=== PATIENT | female | born 1950 | race Caucasian/White ===

== ENCOUNTER 2025-01-28 10:55 | Inpatient (IN) | payer MEDICARE ==
[~2025-01-28] VITALS: Ht 157.5 cm; Wt 59.0 kg
[2025-01-28 11:10] VITALS: BP 132/109
[2025-01-28 11:56] LABS: BASO # 0.0 10*3/uL (0.0-0.1); BASO % 0.6 % (0.0-1.0); EOS # 0.0 10*3/uL (0.0-0.4); EOS % 0.8 % (1.0-4.0); MEAN CELL VOLUME 94.4 fl (81.0-99.0); MEAN CORPUSCULAR HGB 30.4 pg (27.0-31.0); MEAN PLATELET VOLUME 9.8 fl (9.6-12.3); MONO # 0.4 10*3/uL (0.1-1.0); MONO % 8.4 % (3.0-9.0); NEUT # 3.5 10*3/uL (2.3-7.9); NEUT % 66.6 % (47.0-73.0); NUCLEATED RED BLOOD CELL 0.0 % (0.0-0.0); NUCLEATED RED BLOOD CELL 0.0 10*3/uL (0.0-0.0); PLATELET COUNT AUTOMATED 233 10*3/uL (130-400); RED CELL DISTRI WIDTH 13.7 % (0-14.5)
[2025-01-28 12:13] LABS: BILIRUBIN Negative (Negative); BLOOD Negative (Negative); CLARITY Clear (Clear); COLOR Yellow (Yellow); KETONE Negative (Negative); LEUKO ESTERASE Trace (Negative); NITRITE Negative (Negative); PH 6.0 (4.5-8.0); SPECIFIC GRAVITY 1.015 (1.001-1.030); UROBILINOGEN 0.2 E.U./dl (0.0-1.0)
[2025-01-28 12:19] LABS: BUN 10.0 mg/dl (9-23); SGPT/ALT 9.0 U/L (5-49)
[2025-01-28 12:24] LABS: URINE AMPHETAMINES Negative (1000ng/ml); URINE BARBITURATES Negative (200ng/ml); URINE BENZODIAZEPINES Negative (200ng/ml); URINE CANNABINOIDS (THC) Negative (50ng/ml); URINE COCAINE Negative (300ng/ml); URINE METHADONE Negative (300ng/ml); URINE OPIATES Negative (300ng/ml); URINE PHENCYCLIDINE Negative (25ng/ml)
[2025-01-28 12:32] LABS: BACTERIA 1+; MUCOUS 1+
[2025-01-28] MEDS ORDERED: LORazepam 2 MG/ML VIAL IM PRN (15:30)
[2025-01-28] MEDS ORDERED: LORazepam 1 MG TAB PO PRN (15:30)
[2025-01-28] MEDS ORDERED: Water, Sterile 10 ML VIAL IM PRN (15:55)
[2025-01-28] MEDS ORDERED: LORazepam 2 MG/ML VIAL ONE (15:59)
[2025-01-28] MEDS ORDERED: hydrOXYzine hydrochloride 50 MG/ML VIAL IM PRN (16:00)
[2025-01-28] MEDS ORDERED: ACETAMINOPHEN 325 MG TAB PO PRN (16:10)
[2025-01-28] MEDS ORDERED: Menthol/Zinc Oxide 4 GM THIN T PRN (16:15)
[2025-01-28] MEDS ORDERED: RIVASTIGMINE TAR3 M1 PO (16:22)
[2025-01-28] MEDS ORDERED: ROSUVASTATIN CA10 MG PO (16:22)
[2025-01-28] MEDS ORDERED: ZOLOFT100 MG PO (16:24)
[2025-01-28] MEDS ORDERED: TYLENOL EXTRA500 MG PO (16:25)
[2025-01-28] MEDS ORDERED: VITAMIN D350 MCG PO (16:26)
[2025-01-28] MEDS ORDERED: ALLEGRA HIVES180 MG PO (16:28)
[2025-01-28] MEDS ORDERED: AZELASTINE137 MCG/0. INH (16:30)
[2025-01-28] MEDS ORDERED: ELIQUIS2.5 M1 PO (16:33)
[2025-01-28] MEDS ORDERED: ATIVAN1 MG PO ×2 (16:35→16:36)
[2025-01-28] MEDS ORDERED: NAMENDA-5 PO (16:37)
[2025-01-28] MEDS ORDERED: SINGULAIR10 M1 PO (16:38)
[2025-01-28] MEDS ORDERED: Memantine Hydrochloride 5 MG TAB PO SCH (21:00)
[2025-01-28] MEDS ORDERED: LORazepam 1 MG TAB PO SCH (21:00)
[2025-01-28] MEDS ORDERED: APIXABAN 2.5 MG TABLET PO SCH (21:00)
[2025-01-28 21:10] VITALS: BP 126/81
[2025-01-29 06:48] LABS: LDL CHOLESTEROL 89.0 mg/dL (9-159)
[2025-01-29 07:13] LABS: VITAMIN D, 25-HYDROXY 42.3 ng/mL (30-100)
[2025-01-29 08:15] VITALS: BP 138/82
[2025-01-29] MEDS ORDERED: CYANOCOBALAMIN 1,000 MCG/ML VIAL IM SCH (10:00)
[2025-01-29] MEDS ORDERED: risperiDONE 0.5 MG TAB PO SCH (10:00)
[2025-01-29] MEDS ORDERED: LORazepam 0.5 MG TAB PO SCH (13:00)
[2025-01-29 20:00] VITALS: BP 110/53
[2025-01-29] MEDS ORDERED: risperiDONE 1 MG TAB PO SCH (21:00)
[2025-01-30 07:37] VITALS: BP 111/59
[2025-01-30] MEDS ORDERED: DIVALPROEX (DR) 500 MG TAB PO ONE (11:10)
[2025-01-30 20:00] VITALS: BP 119/70
[2025-01-30] MEDS ORDERED: DIVALPROEX (DR) 250 MG TAB PO SCH (21:00)
[2025-01-31 08:00] VITALS: BP 133/59
[2025-01-31 20:00] VITALS: BP 148/78
[2025-02-01 08:00] VITALS: BP 116/66
[2025-02-01] MEDS ORDERED: MG-AL HYDROXIDE/SIMETICONE 30 ML UDC PO PRN (10:35)
[2025-02-01] MEDS ORDERED: Ondansetron Hydrochloride 4 MG TAB PO PRN (11:10)
[2025-02-01 12:22] LABS: BASO # 0.0 10*3/uL (0.0-0.1); BASO % 0.1 % (0.0-1.0); EOS # 0.0 10*3/uL (0.0-0.4); EOS % 0.1 % (1.0-4.0); MEAN CELL VOLUME 92.8 fl (81.0-99.0); MEAN CORPUSCULAR HGB 30.1 pg (27.0-31.0); MEAN PLATELET VOLUME 9.8 fl (9.6-12.3); MONO # 0.3 10*3/uL (0.1-1.0); MONO % 4.0 % (3.0-9.0); NEUT # 6.9 10*3/uL (2.3-7.9); NEUT % 86.9 % (47.0-73.0); NUCLEATED RED BLOOD CELL 0.0 % (0.0-0.0); NUCLEATED RED BLOOD CELL 0.0 10*3/uL (0.0-0.0); PLATELET COUNT AUTOMATED 181 10*3/uL (130-400); RED CELL DISTRI WIDTH 13.7 % (0-14.5)
[2025-02-01 12:56] LABS: BUN 14 mg/dl (9-23); SGPT/ALT 8 U/L (5-49)
[2025-02-01 20:00] VITALS: BP 125/85
[2025-02-02 08:00] VITALS: BP 123/60
[2025-02-02] MEDS ORDERED: RIVASTIGMINE 13.3 MG/24 HR TDM T SCH (09:00)
[2025-02-02 20:00] VITALS: BP 121/68
[2025-02-03 08:00] VITALS: BP 117/56
[2025-02-03 20:00] VITALS: BP 122/87
[2025-02-04 09:13] VITALS: BP 144/58
[2025-02-04 20:00] VITALS: BP 133/59
[2025-02-05 08:00] VITALS: BP 135/63
[2025-02-05 20:00] VITALS: BP 136/75
[2025-02-05] MEDS ORDERED: RAMELTEON 8 MG TAB PO SCH (21:00)
[2025-02-06 08:58] VITALS: BP 140/71
[2025-02-06 20:00] VITALS: BP 117/61
[2025-02-07 06:27] LABS: BASO # 0.0 10*3/uL (0.0-0.1); BASO % 0.8 % (0.0-1.0); EOS # 0.1 10*3/uL (0.0-0.4); EOS % 3.1 % (1.0-4.0); MEAN CELL VOLUME 96.3 fl (81.0-99.0); MEAN CORPUSCULAR HGB 30.9 pg (27.0-31.0); MEAN PLATELET VOLUME 10.4 fl (9.6-12.3); MONO # 0.5 10*3/uL (0.1-1.0); MONO % 11.6 % (3.0-9.0); NEUT # 1.7 10*3/uL (2.3-7.9); NEUT % 43.1 % (47.0-73.0); NUCLEATED RED BLOOD CELL 0.0 % (0.0-0.0); NUCLEATED RED BLOOD CELL 0.0 10*3/uL (0.0-0.0); PLATELET COUNT AUTOMATED 204 10*3/uL (130-400); RED CELL DISTRI WIDTH 13.3 % (0-14.5)
[2025-02-07 06:43] LABS: BUN 9 mg/dl (9-23)
[2025-02-07 06:47] LABS: SGPT/ALT < 7 U/L (5-49)
[2025-02-07 08:22] VITALS: BP 111/74
[2025-02-07 20:18] LABS: BASO # 0.0 10*3/uL (0.0-0.1); BASO % 0.3 % (0.0-1.0); EOS # 0.1 10*3/uL (0.0-0.4); EOS % 0.8 % (1.0-4.0); MEAN CELL VOLUME 93.9 fl (81.0-99.0); MEAN CORPUSCULAR HGB 30.3 pg (27.0-31.0); MEAN PLATELET VOLUME 9.8 fl (9.6-12.3); MONO # 0.6 10*3/uL (0.1-1.0); MONO % 9.3 % (3.0-9.0); NEUT # 3.6 10*3/uL (2.3-7.9); NEUT % 61.0 % (47.0-73.0); NUCLEATED RED BLOOD CELL 0.0 % (0.0-0.0); NUCLEATED RED BLOOD CELL 0.0 10*3/uL (0.0-0.0); PLATELET COUNT AUTOMATED 215 10*3/uL (130-400); RED CELL DISTRI WIDTH 13.2 % (0-14.5)
[2025-02-07 20:37] LABS: BUN 13.0 mg/dl (9-23)
[2025-02-08 08:50] VITALS: BP 118/58
[2025-02-08 20:00] VITALS: BP 115/67
[2025-02-09 08:00] VITALS: BP 119/73
[2025-02-09 20:00] VITALS: BP 144/74
[2025-02-10 09:00] VITALS: BP 138/62
[2025-02-10 20:00] VITALS: BP 128/66
[2025-02-11 08:00] VITALS: BP 104/48
[2025-02-11] MEDS ORDERED: Rivastigmine Tartrate 9.5 MG/24 HR PATCH T SCH (12:24)
[2025-02-11 20:00] VITALS: BP 105/78
[2025-02-12 06:35] LABS: BUN 10 mg/dl (9-23)
[2025-02-12 09:06] VITALS: BP 122/49
[2025-02-12] MEDS ORDERED: VITAMIN B12500 MC2 PO (13:10)
[2025-02-12 20:00] VITALS: BP 116/82
[2025-02-13 08:00] VITALS: BP 101/72
[2025-02-13] MEDS ORDERED: HYDROXYZINE PAM25 M1 PO (10:23)
[2025-02-13] MEDS ORDERED: MEMANTINE HCL10 MG PO (10:23)
[2025-02-13] MEDS ORDERED: EXELON1 EAC2 TD (10:23)
[2025-02-13] MEDS ORDERED: LORAZEPAM1 MG PO (10:23)
[2025-02-13] MEDS ORDERED: VITAMIN B12500 MC2 PO (10:23)
[2025-02-13] MEDS ORDERED: RAMELTEON8 MG PO (10:23)
[2025-02-13] MEDS ORDERED: RISPERIDONE1 M1 OGT (10:23)
== END 2025-02-13 10:40 | DRG 883 ==
LOC: ED 10:55 → EDHOLD 14:18 → 3N 14:18
PROVIDERS: Counselor Professional; Internal Medicine; Student in an Organized Health Care Education/Training Program; ADMIT Psychiatry & Neurology Psychiatry; ATTEND Psychiatry & Neurology Psychiatry
PROC: GZHZZZZ Group Psychotherapy (ICD-10-PCS; principal; 2025-01-29)
PROC: GZ56ZZZ Individual Psychotherapy, Supportive (ICD-10-PCS; 2025-01-29)
DX: F63.81 Intermittent explosive disorder (principal); N18.30 Chronic kidney disease, stage 3 unspecified; N17.0 Acute kidney failure with tubular necrosis; D68.51 Activated protein C resistance; F02.83 Dementia in other diseases classified elsewhere, unspecified severity, with mood disturbance; F23 Brief psychotic disorder; E44.0 Moderate protein-calorie malnutrition; Z68.43 Body mass index [BMI] 50.0-59.9, adult; R45.851 Suicidal ideations; R00.1 Bradycardia, unspecified; E53.8 Deficiency of other specified B group vitamins; E78.5 Hyperlipidemia, unspecified; I25.10 Atherosclerotic heart disease of native coronary artery without angina pectoris; G30.9 Alzheimer's disease, unspecified; R73.03 Prediabetes; R45.850 Homicidal ideations; Z88.2 Allergy status to sulfonamides; Z88.8 Allergy status to other drugs, medicaments and biological substances; Z86.73 Personal history of transient ischemic attack (TIA), and cerebral infarction without residual deficits; Z79.899 Other long term (current) drug therapy; Z79.01 Long term (current) use of anticoagulants; Z79.2 Long term (current) use of antibiotics